=== PATIENT | male | born 1955 | race Caucasian/White ===

== ENCOUNTER 2020-06-08 17:08 | Inpatient (IN) ==
[2020-06-08] MEDS ORDERED: Thiamine (B-1) 200 MG in 0.9 % Sodium Chloride 50 ML IVPB ONE (17:27)
[2020-06-08] MEDS ORDERED: Folic Acid 1 MG in 0.9 % Sodium Chloride 50 ML IVPB ONE (17:27)
[2020-06-08] MEDS ORDERED: 0.9 % Sodium Chloride 1,000 ML IVC ONE (17:27)
[2020-06-08 17:56] LABS: Basophils % 1.5 %; Eosinophils % 0.7 %; Hemoglobin 11.9 g/dL (12.9-16.9); Immature Granulocytes % 0.4 % (0-4); Lymphocytes # 0.6 K/mcL (0.6-4.6); Lymphocytes % 21.4 %; Mean Corpuscular Hemoglobin 31.8 pg (28.0-33.3); Mean Corpuscular Volume 93.6 fL (83.0-100.0); Mean Platelet Volume 9.8 fL (9.4-12.4); Monocytes # 0.4 K/mcL (0.0-1.3); Monocytes % 14.4 %; Neutrophils # 1.7 K/mcL (1.6-8.9); Platelet Count 157 K/mcL (140-400); Red Blood Count 3.74 M/mcL (4.19-5.50); Red Cell Distribution Width 13.6 % (11.5-14.5); Segmented Neutrophils % 61.6 %; White Blood Count 2.7 K/mcL (4.3-11.1)
[2020-06-08 18:12] LABS: Acetaminophen < 10 mcg/mL (10-20); Alanine Aminotransferase 172 Units/L (7-52); Albumin 3.4 g/dL (3.5-5.7); Albumin/Globulin Ratio 1.7 (1.1-2.2); Alkaline Phosphatase 108 Units/L (34-104); Aspartate Amino Transferase 221 Units/L (13-39); BUN/Creatinine Ratio 11 (6-26); Bilirubin,Total 0.5 mg/dL (0.3-1.0); Blood Urea Nitrogen 8 mg/dL (8-23); Calcium 8.5 mg/dL (8.6-10.3); Carbon Dioxide 25 mEq/L (23-29); Chloride 99 mEq/L (98-107); Ethanol 21 mg/dL (Less than 10); Glucose 116 mg/dL (70-105); Lipase 85 Units/L (11-82); Magnesium 1.3 mg/dL (1.6-2.6); Osmolality,Calculated 285 (280-300); Potassium 2.8 mEq/L (3.5-5.1); Salicylate < 2.5 mg/dL (15.0-30.0); Sodium 138 mEq/L (136-145); Total Protein 5.4 g/dL (6.4-8.9); eGFR For African Americans > 60 (> 60); eGFR For Non-African Americans > 60 (> 60)
[2020-06-08] MEDS ORDERED: Magnesium Sulfate 1 GM/102 ML PIGGYBACK IVPB ONE (18:38)
[2020-06-08] MEDS ORDERED: *HR* LORazepam 2 MG/ML VIAL IVP ONE ×2 (19:04→20:12)
[2020-06-08] MEDS ORDERED: Potassium Phosphate 44 MEQ in 0.9 % Sodium Chloride 250 ML IVPB ONE (19:46)
[2020-06-08] MEDS ORDERED: Naloxone 0.4 MG/ML INJ IVP PRN (20:18)
[2020-06-08] MEDS ORDERED: Ondansetron 4 MG/2 ML VIAL IVP PRN (20:18)
[2020-06-08] MEDS ORDERED: 0.9 % Sodium Chloride 1,000 ML IVC SCH (20:30)
[2020-06-08 20:38] LABS: Amphetamine Screen,Urine Negative ng/mL (Cutoff=1000); Barbiturate Screen,Urine Negative ng/mL (Cutoff=200); Benzodiazepines Screen,Urine Negative ng/mL (Cutoff=200); Cannabinoid Screen,Urine Negative ng/mL (Cutoff = 50); Cocaine Screen,Urine Negative ng/mL (Cutoff= 300); Opiate Screen,Urine Negative ng/mL (Cutoff=300); Phencyclidine Screen,Urine Negative ng/mL (Cutoff=25)
[2020-06-08 20:59] LABS: Bacteria,Urine Few per hpf (None-Few); Bilirubin,Urine Negative (Negative); Blood,Urine Negative (Negative); Clarity,Urine Clear (Clear); Color,Urine Yellow (Yellow); Glucose,Urine (UA) Normal (Normal); Hyaline Casts,Urine Few per lpf (None Seen); Ketones,Urine Negative (Negative); Leukocyte Esterase,Urine Negative (Negative); Mucus,Urine Few per lpf (None-Few); Nitrite,Urine Negative (Negative); Protein,Urine 30 mg/dL (Neg-Trace); Specific Gravity,Urine 1.019 (1.010-1.025); WBC,Urine 0-3 per hpf (0-3)
[2020-06-08] MEDS ORDERED: *HR* LORazepam 2 MG/ML VIAL IVP PRN (21:04)
[2020-06-08 22:21] LABS: Immature Reticulocyte % 9.4 % (11.0-38.0); Retculocyte # 0.03 M/mcL (0.05-0.10); Reticulocyte % 0.7 % (1.6-2.8)
[2020-06-08 22:39] LABS: % Iron Saturation 88 % (20-55); Iron 172 mcg/dL (65-175); Transferrin 139 mg/dL (203-362)
[2020-06-08 22:53] LABS: Folate 5.6 ng/mL (3.0-16.0)
[2020-06-08 22:59] LABS: Prothrombin Time 11.4 Seconds (9.4-12.1)
[2020-06-08 23:02] LABS: Activated Partial Thrombo Time 23.6 Seconds (26.0-36.0)
[2020-06-08] MEDS: Pantoprazole 40 MG VIAL IVP SCH (23:13)
[2020-06-09 02:08] LABS: Basophils % 1.3 %; Immature Granulocytes % 0.3 % (0-4); Platelet Count 131 K/mcL (140-400); Red Cell Distribution Width 13.7 % (11.5-14.5)
[2020-06-09 02:10] LABS: Eosinophils # 0.1 K/mcL (0.0-0.6); Eosinophils % 1.6 %; Hematocrit 32.1 % (37.5-50.1); Immature Platelets 4.9 % (1.1-6.1); Lymphocytes # 0.7 K/mcL (0.6-4.6); Lymphocytes % 22.2 %; Mean Corpuscular HGB Conc 34.3 g/dL (31.6-35.5); Mean Corpuscular Hemoglobin 32.6 pg (28.0-33.3); Mean Corpuscular Volume 95.3 fL (83.0-100.0); Mean Platelet Volume 10.2 fL (9.4-12.4); Monocytes # 0.6 K/mcL (0.0-1.3); Monocytes % 17.5 %; Neutrophils # 1.8 K/mcL (1.6-8.9); Red Blood Count 3.37 M/mcL (4.19-5.50); Segmented Neutrophils % 57.1 %; White Blood Count 3.2 K/mcL (4.3-11.1)
[2020-06-09 02:27] LABS: BUN/Creatinine Ratio 15 (6-26); Blood Urea Nitrogen 11 mg/dL (8-23); Carbon Dioxide 27 mEq/L (23-29); Chloride 103 mEq/L (98-107); Chol/HDL Ratio 2.4 (0-4.9); Cholesterol 198 mg/dL (< 200); Glucose 138 mg/dL (70-105); HDL Cholesterol 84 mg/dL (40-59); LDL Cholesterol,Calculated 99 mg/dL (< 100); Magnesium 1.5 mg/dL (1.6-2.6); Osmolality,Calculated 290 (280-300); Sodium 139 mEq/L (136-145); Triglycerides 73 mg/dL (< 150); eGFR For African Americans > 60 (> 60); eGFR For Non-African Americans > 60 (> 60)
[2020-06-09] MEDS ORDERED: Potassium Chloride 40 MEQ, Lidocaine 1% 2 ML in 0.9 % Sodium Chloride 500 ML IVPB ONE (05:02)
[2020-06-09] MEDS: Pantoprazole 40 MG VIAL IVP SCH ×2 (05:32→17:11)
[2020-06-09 06:30] LABS: Albumin 2.9 g/dL (3.5-5.7); Albumin/Globulin Ratio 1.8 (1.1-2.2); Bilirubin,Direct 0.2 mg/dL (0.0-0.2); Bilirubin,Indirect 0.5 mg/dL (0.0-1.0); Bilirubin,Total 0.7 mg/dL (0.3-1.0); Globulin 1.6 g/dL (2.4-3.5); Total Protein 4.5 g/dL (6.4-8.9)
[2020-06-09 07:22] LABS: Hepatitis B Surface Antigen Nonreactive (Nonreactive)
[2020-06-09 07:50] LABS: Hepatitis B Core IgM Nonreactive (Nonreactive)
[2020-06-09 07:51] LABS: Hepatitis C Virus Antibody Nonreactive (Nonreactive)
[2020-06-09 07:52] LABS: Hepatitis A Antibody IgM Nonreactive (Nonreactive)
[2020-06-09] MEDS: *HR* LORazepam 2 MG/ML VIAL IVP PRN ×4 (08:15→18:12)
[2020-06-09] MEDS ORDERED: Potassium Chloride 40 MEQ, Lidocaine 1% 2 ML in D5% in Water 500 ML IVPB ONE (08:23)
[2020-06-09] MEDS ORDERED: Lidocaine -MPF 2% 2 ML VIAL ONE (09:38)
[2020-06-09] MEDS ORDERED: *HR* Propofol 200 MG/20 ML VIAL IVP ONE (09:39)
[2020-06-09] MEDS: atenoloL 25 MG TABLET PO SCH (10:06)
[2020-06-09] MEDS ORDERED: Thiamine (B-1) 100 MG, Folic Acid 1 MG in 0.9 % Sodium Chloride 100 ML IVPB SCH (18:00)
[2020-06-09] MEDS ORDERED: QUEtiapine Fumarate 100 MG TABLET PO ONE (18:25)
[2020-06-09] MEDS: QUEtiapine Fumarate 100 MG TABLET PO SCH (18:32)
[2020-06-09] MEDS: Dexmedetomidine HCl 400 MCG/100 ML MLS IVC SCH (21:55)
[2020-06-10] MEDS: Pantoprazole 40 MG VIAL IVP SCH ×2 (06:34→16:21)
[2020-06-10] MEDS: atenoloL 25 MG TABLET PO SCH (09:57)
[2020-06-10] MEDS: 0.9 % Sodium Chloride 1,000 ML IVC SCH ×2 (09:57→22:22)
[2020-06-10 10:04] LABS: Hematocrit 32.8 % (37.5-50.1); Immature Platelets 6.3 % (1.1-6.1); Mean Corpuscular HGB Conc 33.5 g/dL (31.6-35.5); Mean Corpuscular Hemoglobin 32.4 pg (28.0-33.3); Mean Corpuscular Volume 96.8 fL (83.0-100.0); Mean Platelet Volume 10.4 fL (9.4-12.4); Red Blood Count 3.39 M/mcL (4.19-5.50); Red Cell Distribution Width 13.5 % (11.5-14.5); White Blood Count 3.5 K/mcL (4.3-11.1)
[2020-06-10 10:22] LABS: BUN/Creatinine Ratio 9 (6-26); Blood Urea Nitrogen 6 mg/dL (8-23); Calcium 8.3 mg/dL (8.6-10.3); Carbon Dioxide 29 mEq/L (23-29); Chloride 105 mEq/L (98-107); Glucose 84 mg/dL (70-105); Magnesium 1.7 mg/dL (1.6-2.6); Osmolality,Calculated 285 (280-300); Phosphorous 2.9 mg/dL (2.7-4.5); Potassium 3.3 mEq/L (3.5-5.1); Sodium 139 mEq/L (136-145); eGFR For African Americans > 60 (> 60); eGFR For Non-African Americans > 60 (> 60)
[2020-06-10] MEDS ORDERED: Potassium Chloride 40 MEQ, Lidocaine 1% 2 ML in D5% in Water 500 ML IVPB ONE (13:28)
[2020-06-10] MEDS ORDERED: Magnesium Sulfate 1 GM/102 ML PIGGYBACK IVPB ONE (13:28)
[2020-06-10] MEDS: *HR* Heparin 5,000 UNIT/ML VIAL SQ SCH ×2 (14:08→22:41)
[2020-06-10] MEDS: *HR* LORazepam 2 MG/ML VIAL IVP PRN ×2 (14:15→15:51)
[2020-06-10] MEDS: Nicotine 21 MG PATCH.TD24 TD SCH (16:21)
[2020-06-10] MEDS: Dexmedetomidine HCl 400 MCG/100 ML MLS IVC SCH (22:23)
[2020-06-10] MEDS: QUEtiapine Fumarate 100 MG TABLET PO SCH (22:26)
[2020-06-11] MEDS: Pantoprazole 40 MG VIAL IVP SCH (06:15)
[2020-06-11 06:32] LABS: Hematocrit 34.1 % (37.5-50.1); Hemoglobin 11.4 g/dL (12.9-16.9); Mean Corpuscular HGB Conc 33.4 g/dL (31.6-35.5); Mean Corpuscular Hemoglobin 32.6 pg (28.0-33.3); Mean Corpuscular Volume 97.4 fL (83.0-100.0); Mean Platelet Volume 10.8 fL (9.4-12.4); Red Blood Count 3.5 M/mcL (4.19-5.50); Red Cell Distribution Width 13.2 % (11.5-14.5); White Blood Count 4.6 K/mcL (4.3-11.1)
[2020-06-11 06:48] LABS: BUN/Creatinine Ratio 8 (6-26); Blood Urea Nitrogen 5 mg/dL (8-23); Carbon Dioxide 24 mEq/L (23-29); Chloride 102 mEq/L (98-107); Glucose 103 mg/dL (70-105); Magnesium 1.6 mg/dL (1.6-2.6); Osmolality,Calculated 276 (280-300); Potassium 3.5 mEq/L (3.5-5.1); Sodium 134 mEq/L (136-145); eGFR For African Americans > 60 (> 60); eGFR For Non-African Americans > 60 (> 60)
[2020-06-11 06:55] LABS: Thyroid Stimulating Hormone 1.802 mcIU/mL (0.340-5.600)
[2020-06-11] MEDS ORDERED: Magnesium Sulfate 1 GM/102 ML PIGGYBACK IVPB ONE (07:49)
[2020-06-11] MEDS ORDERED: Potassium Chloride 20 MEQ, Lidocaine 1% 2 ML in 0.9 % Sodium Chloride 250 ML IVPB ONE (07:49)
[2020-06-11] MEDS: Nicotine 21 MG PATCH.TD24 TD SCH (09:08)
[2020-06-11] MEDS: *HR* Rivaroxaban 10 MG TABLET PO SCH (09:08)
[2020-06-11] MEDS: 0.9 % Sodium Chloride 1,000 ML IVC SCH ×2 (09:10→19:27)
[2020-06-11] MEDS: *HR* LORazepam 2 MG/ML VIAL IVP PRN ×2 (09:12→13:00)
[2020-06-11] MEDS: atenoloL 25 MG TABLET PO SCH (09:13)
[2020-06-11] MEDS: Thiamine (B-1) 100 MG TABLET PO SCH (12:47)
[2020-06-11] MEDS: Folic Acid 1 MG TABLET PO SCH (12:47)
[2020-06-11] MEDS: Dexmedetomidine HCl 400 MCG/100 ML MLS IVC SCH (13:00)
[2020-06-11] MEDS: QUEtiapine Fumarate 100 MG TABLET PO SCH (20:34)
[2020-06-12 01:37] LABS: Red Blood Count 3.58 M/mcL (4.19-5.50)
[2020-06-12 01:38] LABS: Hematocrit 34.3 % (37.5-50.1); Hemoglobin 11.7 g/dL (12.9-16.9); Immature Platelets 9.5 % (1.1-6.1); Mean Corpuscular HGB Conc 34.1 g/dL (31.6-35.5); Mean Corpuscular Hemoglobin 32.7 pg (28.0-33.3); Mean Corpuscular Volume 95.8 fL (83.0-100.0); Mean Platelet Volume 11.1 fL (9.4-12.4); Red Cell Distribution Width 12.8 % (11.5-14.5)
[2020-06-12 01:55] LABS: Alanine Aminotransferase 96 Units/L (7-52); Albumin 3.1 g/dL (3.5-5.7); Albumin/Globulin Ratio 1.5 (1.1-2.2); Alkaline Phosphatase 102 Units/L (34-104); Aspartate Amino Transferase 85 Units/L (13-39); BUN/Creatinine Ratio 7 (6-26); Bilirubin,Total 0.9 mg/dL (0.3-1.0); Blood Urea Nitrogen 4 mg/dL (8-23); Calcium 8.2 mg/dL (8.6-10.3); Carbon Dioxide 22 mEq/L (23-29); Chloride 104 mEq/L (98-107); Globulin 2.1 g/dL (2.4-3.5); Glucose 108 mg/dL (70-105); Magnesium 1.7 mg/dL (1.6-2.6); Osmolality,Calculated 275 (280-300); Potassium 3.7 mEq/L (3.5-5.1); Sodium 134 mEq/L (136-145); Total Protein 5.2 g/dL (6.4-8.9); eGFR For African Americans > 60 (> 60); eGFR For Non-African Americans > 60 (> 60)
[2020-06-12] MEDS: 0.9 % Sodium Chloride 1,000 ML IVC SCH ×2 (05:33→16:14)
[2020-06-12] MEDS: *HR* LORazepam 2 MG/ML VIAL IVP PRN ×3 (07:46→17:49)
[2020-06-12] MEDS: Nicotine 21 MG PATCH.TD24 TD SCH (07:48)
[2020-06-12] MEDS: Thiamine (B-1) 100 MG TABLET PO SCH (07:48)
[2020-06-12] MEDS: *HR* Rivaroxaban 10 MG TABLET PO SCH (07:48)
[2020-06-12] MEDS: Folic Acid 1 MG TABLET PO SCH (07:48)
[2020-06-12] MEDS: atenoloL 25 MG TABLET PO SCH (07:49)
[2020-06-12] MEDS: Acetaminophen 325 MG TABLET PO PRN (12:16)
[2020-06-12] MEDS: QUEtiapine Fumarate 100 MG TABLET PO SCH (19:46)
[2020-06-13 00:51] LABS: Hematocrit 33.9 % (37.5-50.1); Hemoglobin 11.3 g/dL (12.9-16.9); Mean Corpuscular HGB Conc 33.3 g/dL (31.6-35.5); Mean Corpuscular Hemoglobin 32.5 pg (28.0-33.3); Mean Corpuscular Volume 97.4 fL (83.0-100.0); Mean Platelet Volume 10.6 fL (9.4-12.4); Red Blood Count 3.48 M/mcL (4.19-5.50); Red Cell Distribution Width 13.3 % (11.5-14.5); White Blood Count 3.3 K/mcL (4.3-11.1)
[2020-06-13 01:06] LABS: BUN/Creatinine Ratio 10 (6-26); Blood Urea Nitrogen 7 mg/dL (8-23); Carbon Dioxide 21 mEq/L (23-29); Chloride 107 mEq/L (98-107); Glucose 117 mg/dL (70-105); Magnesium 1.7 mg/dL (1.6-2.6); Osmolality,Calculated 281 (280-300); Potassium 3.5 mEq/L (3.5-5.1); Sodium 136 mEq/L (136-145); eGFR For African Americans > 60 (> 60); eGFR For Non-African Americans > 60 (> 60)
[2020-06-13] MEDS: 0.9 % Sodium Chloride 1,000 ML IVC SCH ×2 (03:00→08:00)
[2020-06-13] MEDS: *HR* Rivaroxaban 10 MG TABLET PO SCH (08:18)
[2020-06-13] MEDS: Thiamine (B-1) 100 MG TABLET PO SCH (08:18)
[2020-06-13] MEDS: Nicotine 21 MG PATCH.TD24 TD SCH (08:19)
[2020-06-13] MEDS: Folic Acid 1 MG TABLET PO SCH (08:19)
[2020-06-13] MEDS: Acetaminophen 325 MG TABLET PO PRN (08:25)
[2020-06-13] MEDS: *HR* LORazepam 2 MG/ML VIAL IVP PRN (08:26)
[2020-06-13] MEDS: QUEtiapine Fumarate 100 MG TABLET PO SCH (19:38)
[2020-06-14] MEDS: *HR* LORazepam 2 MG/ML VIAL IVP PRN (01:23)
[2020-06-14 06:55] VITALS: BP 123/77
[2020-06-14] MEDS: *HR* Rivaroxaban 10 MG TABLET PO SCH (07:56)
[2020-06-14] MEDS: Folic Acid 1 MG TABLET PO SCH (07:56)
[2020-06-14] MEDS: Nicotine 21 MG PATCH.TD24 TD SCH (07:56)
[2020-06-14] MEDS: Thiamine (B-1) 100 MG TABLET PO SCH (07:56)
== END 2020-06-14 11:48 | disposition other institution (70) | DRG 378 ==
LOC: EMEROOARM 17:08 → 3BNU 17:08 → SUATTDRO 22:00 → 3BNU 22:22 → 2NNU 06-09 21:37 → SUATTDRO 06-10 16:57 → 3BNU 06-13 18:28
PROVIDERS: ADMIT Internal Medicine; ATTEND Internal Medicine
PROC: ENDOEBX (2020-06-09 11:00)